=== PATIENT | male | born 1945 | race Caucasian/White ===

== ENCOUNTER 2019-01-23 18:57 | Emergency (ER) | payer OTHER ==
[~2019-01-23] VITALS: Ht 162.6 cm; Wt 57.0 kg
[2019-01-23 19:04] VITALS: Ht 162.6 cm; Wt 57.0 kg
[2019-01-23] MEDS ORDERED: ONDANSETRON (ODT) 4 MG TAB ODT STA (20:18)
[2019-01-23] MEDS ORDERED: HYDROCODONE/APAP (5/325) TAB PO ONE (20:30)
[2019-01-23] MEDS ORDERED: ONDANSETRON 4 MG INJ IV STA (22:59)
[2019-01-23] MEDS ORDERED: morphine 4 MG/ML VIAL IV STA (22:59)
--- NOTE | 2019-01-23 23:31 | ERD ---
ER Documentation Chief Complaint Chief Complaint wayne x 1 day. jonha'd from [facility] for brain hemorrhage ~ 1 month ago HPI Patient is a 73-year-old male with hypertension and previous intracranial hemorrhage who presents with headache. The symptoms started a few days ago. The symptoms were worse today. He has a frontal headache which comes and goes. He denies falls. He had an intracranial hemorrhage 1 month ago and was operated on at [facility]. Upon review of old medical records this is the patient's third visit to the ER since 2012. ROS All systems reviewed and are negative except as per history of present illness. Allergies Allergies: Coded Allergies: No Known Allergy (Unverified , 08/15/13) PMhx/Soc Hx Cardiac Disorders: Yes (htn) Hx Alcohol Use: No Hx Substance Use: No Hx Tobacco Use: No Smoking Status: Never smoker FmHx Family History: No diabetes Physical Exam Vitals Vital Signs Date Temp Pulse Resp B/P (MAP) Pulse Ox O2 O2 Flow FiO2 Time Delivery Rate 01/23/19 69 19 147/79 100 Room Air 21:47 (101) 01/23/19 99.4 88 18 173/88 97 19:04 (116) Physical Exam Const: Moderate distress secondary to pain Head: Atraumatic Eyes: Normal Conjunctiva ENT: Normal External Ears, Nose and Mouth. Neck: Full range of motion. No meningismus. Resp: Clear to auscultation bilaterally Cardio: Regular rate and rhythm, no murmurs Abd: Soft, non tender, non distended. Normal bowel sounds Skin: No petechiae or rashes Back: No midline or flank tenderness Ext: No cyanosis, or edema Neur: Awake and alert, cranial nerves II through XII intact, strength is 5 out of 5 in all 4 extremities Psych: Normal Mood and Affect Result Diagram: 01/23/192 01/23/19 2252 Results 24 hrs Laboratory Tests Test 01/23/19 22:52 White Blood Count 10.4 10^3/ul Red Blood Count 3.49 10^6/ul Hemoglobin 10.7 g/dl Hematocrit 32.0 % Mean Corpuscular Volume 91.7 fl Mean Corpuscular Hemoglobin 30.7 pg Mean Corpuscular Hemoglobin Concent 33.4 g/dl Red Cell Distribution Width 14.5 % Platelet Count 367 10^3/UL Mean Platelet Volume 8.4 fl Immature Granulocytes % 0.400 % Neutrophils % 62.5 % Lymphocytes % 14.4 % Monocytes % 8.9 % Eosinophils % 12.9 % Basophils % 0.9 % Nucleated Red Blood Cells % 0.0 /100WBC Immature Granulocytes # 0.040 10^3/ul Neutrophils # 6.5 10^3/ul Lymphocytes # 1.5 10^3/ul Monocytes # 0.9 10^3/ul Eosinophils # 1.3 10^3/ul Basophils # 0.1 10^3/ul Nucleated Red Blood Cells # 0.0 10^3/ul Prothrombin Time 13.7 Sec Prothrombin Time Ratio 1.1 INR International Normalized Ratio 1.04 Activated Partial Thromboplast Time 31.6 Sec Urine Color YELLOW Urine Clarity CLEAR Urine pH 5.0 Urine Specific [place] 1.029 Urine Ketones NEGATIVE mg/dL Urine Nitrite NEGATIVE mg/dL Urine Bilirubin NEGATIVE mg/dL Urine Urobilinogen NEGATIVE mg/dL Urine Leukocyte Esterase NEGATIVE Lauren/ul Urine Microscopic RBC 0 /HPF Urine Microscopic WBC 1 /HPF Urine Mucus FEW /HPF Urine Hemoglobin NEGATIVE mg/dL Urine Glucose NEGATIVE mg/dL Urine Total Protein 1+ mg/dl Sodium Level 132 mmol/L Potassium Level 4.7 mmol/L Chloride Level 100 mmol/L Carbon Dioxide Level 26 mmol/L Anion Gap 6 Blood Urea Nitrogen 19 mg/dl Creatinine 0.88 mg/dl Est Glomerular Filtrat Rate mL/min mL/min Glucose Level 96 mg/dl Hemoglobin A1c 5.8 % Calcium Level 8.7 mg/dl Troponin I Pending Triglycerides Level 79 mg/dl Cholesterol Level 117 mg/dl LDL Cholesterol, Calculated 68 mg/dl HDL Cholesterol 33 mg/dl Cholesterol/HDL Ratio 3.5 RATIO Urine Opiates Screen Positive Urine Barbiturates Negative Urine Amphetamines Screen Negative Urine Benzodiazepines Screen Negative Urine Cocaine Screen Negative Urine Cannabinoids Negative Current Medications Medications Dose Sig/Edith Start Time Status Last (Trade) Ordered Route PRN Stop Time Admin Dose Reason Admin 1 tab ONCE ONCE 01/23/19 DC 01/23/19 Acetaminophen PO 20:30 20:25 / 01/23/19 20:31 Hydrocodone Bitart ([place] (5/325)) Ondansetron 4 mg ONCE STAT 01/23/19 DC 01/23/19 HCl (Zofran ODT 20:18 20:25 Odt) 01/23/19 20:19 Morphine 4 mg ONCE STAT 01/23/19 DC 01/23/19 Sulfate IV 22:59 23:05 (morphine) 01/23/19 23:00 Ondansetron 4 mg ONCE STAT 01/23/19 DC 01/23/19 HCl (Zofran IV 22:59 23:05 Inj) 01/23/19 23:00 Procedures/MDM CT brain shows subdural hemorrhage per radiology. Chest X-ray 1V Interpreted by me: Soft Tissue: No acute abnormalities Bones: No acute abnormalities Mediastinum/Cardiac Silhouette/Lungs: Pulmonary fibrosis Patient is a 73-year-old male who presents with acute headache. He was found to have acute subdural hemorrhage on CT scan. I spoke with Dr. Crowley the neurosurgeon on-call. He said that since the patient was operated on 1 month ago at [facility] we should call them to see if they would like to transfer him back. I spoke with the doctor from the transfer center at [facility] who is accepted the patient in transfer. The patient denies trauma and is not on any blood thinning medications. Laboratory studies are basically normal at this time with normal coagulation studies. The patient will be transferred via critical care ambulance to [facility]. Critical Care: Time: 35 minutes excluding all billable procedures. Treatments/Evaluations: Close monitoring and treatment of unstable vital signs, cardiorespiratory, and neurologic status, while maintaining tight balance of fluid, respiratory, and cardiac interventions. Departure Diagnosis: Primary Impression: SDH (subdural hematoma) Additional Impression: Headache Headache type: unspecified Headache chronicity pattern: acute headache Intractability: not intractable Qualified Codes: R51 - Headache Condition: Critical SHANIQUA HALL MD January 23, 2019 23:31
[2019-01-23 23:58] VITALS: BP 161/86; PULSE 79; RESP 18
== END 2019-01-24 00:05 | disposition short-term general hospital (02) ==
LOC: E/R 18:57 → CANBEDREQ 23:11 → E/R 01-24 00:05
DX: I62.00 Nontraumatic subdural hemorrhage, unspecified (principal); I10 Essential (primary) hypertension
CPT/HCPCS: 70450; 71045; 80048; 80061; 80307; 81001; 83036; 84484; 85025; 85610; 85730; J2270; J2405; 36415; 93005; 96374; 96375